=== PATIENT | female | born 1975 | race Caucasian/White ===

== ENCOUNTER 2017-03-13 12:25 | Observation (INO) | payer BC ==
[~2017-03-13] VITALS: Ht 172.7 cm; Wt 79.4 kg
[~2017-03-13 12:25] MED LIST: BENZONATATE200 MG PO; ULTRAM50 M1 PO
[2017-03-13 12:57] LABS: HEMATOCRIT 40.1 % (37.0-47.0); HEMOGLOBIN 13.9 g/dl (12.0-16.0); IMMATURE GRANULOCYTES 0.2 % (0.0-1.0); MEAN CORPUSCULAR HGB 32.3 pG CALC (26.0-32.0); MEAN CORPUSCULAR HGB CONC 34.7 g/L CALC (32.0-36.0); NEUT# 3.35 thou/uL (2.00-7.15); RED BLOOD COUNT 4.31 mill/uL (4.20-5.60); RED CELL DISTRI WIDTH 11.5 % (11.5-15.5)
[2017-03-13 13:07] LABS: ALBUMIN 4.2 g/dL (3.2-5.0); ALKALINE PHOSPHATASE 68 u/l (38-126); ANION GAP 14 (6-22 (CALC)); BILIRUBIN, TOTAL 0.7 mg/dL (0.0-1.4); BUN 17 mg/dL (7-17); BUN/CREATININE RATIO 17 (12-20 (CALC)); CALCIUM 9.2 mg/dL (8.4-10.2); CARBON DIOXIDE 25 mmol/l (22-30); CHLORIDE 106 mmol/l (95-108); GFR > 60 ML/MIN (>=60 (CALC)); GFR FOR AFR.AMER. > 60 ML/MIN (>=60 (CALC)); GLUCOSE 94 mg/dL (65-105); SGOT/AST 26 u/l (14-36); SGPT/ALT 39 u/l (9-52); SODIUM 141 mmol/l (137-146); TOTAL PROTEIN 7.1 g/dL (6.3-8.2)
[2017-03-13 13:19] LABS: MYOGLOBIN 17 ng/mL (0 - 62)
[2017-03-13 15:03] VITALS: BP 130/76
[2017-03-13 17:10] VITALS: BP 111/75
[2017-03-13 17:11] VITALS: BP 110/70
[2017-03-13 19:24] LABS: URINE BILIRUBIN - DIPSTICK NEGATIVE (NEGATIVE); URINE BLOOD DIPSTICK NEGATIVE (NEGATIVE); URINE CLARITY CLEAR; URINE COLOR YELLOW; URINE GLUCOSE - DIPSTICK NEGATIVE (NEGATIVE); URINE KETONE NEGATIVE (NEGATIVE); URINE LEUK ESTERASE NEGATIVE (NEGATIVE); URINE NITRITE - DIPSTICK NEGATIVE (Negative); URINE PROTEIN - DIPSTICK NEGATIVE (NEG-TRACE); URINE SPECIFIC GRAVITY 1.015; URINE UROBILINOGEN - DIPSTICK 0.2 E.U./dL (0.2)
[2017-03-13 19:26] LABS: BARBITURATES NEGATIVE (NEGATIVE); COCAINE NEGATIVE (NEGATIVE); METHADONE NEGATIVE (NEGATIVE); OXCYCODONE NEGATIVE (NEGATIVE); TETRAHYDROCANNABIONOL NEGATIVE (NEGATIVE); TRICYLIC ANTIDEPRESSANTS NEGATIVE (NEGATIVE)
[2017-03-13 20:00] VITALS: BP 118/86
[2017-03-14 01:23] LABS: CHOLESTEROL HDL RATIO 2.5 (<4.4 (CALC))
[2017-03-14 04:00] VITALS: BP 108/69
[2017-03-14 08:04] VITALS: BP 124/75
[2017-03-14] MEDS ORDERED: ASPIRIN ADULT L81 M2 PO (10:10)
== END 2017-03-14 10:40 | disposition home or self-care (01) | DRG 313 ==
LOC: ED 12:25 → ED-I 14:05 → ED 14:07 → MS2 14:08
PROVIDERS: Family Medicine; ADMIT Internal Medicine; ATTEND Internal Medicine
DX: R07.9 Chest pain, unspecified (principal); Z82.49 Family history of ischemic heart disease and other diseases of the circulatory system
CPT/HCPCS: G0378; J1650

== ENCOUNTER 2017-09-13 15:55 | Emergency (ER) | payer BC ==
[~2017-09-13] VITALS: Ht 172.7 cm; Wt 82.0 kg
[~2017-09-13 15:55] MED LIST changes: +ASPIRIN ADULT L81 M2 PO
[2017-09-13 15:58] VITALS: BP 131/86
== END 2017-09-13 16:22 | disposition left against medical advice (07) | DRG 951 ==
LOC: ED 15:55 → LWOBS 16:22
DX: Z91.19 Patient's noncompliance with other medical treatment and regimen (principal)

== ENCOUNTER 2018-06-20 21:33 | Emergency (ER) | payer BC ==
[~2018-06-20] VITALS: Ht 170.2 cm; Wt 77.2 kg
[2018-06-20 22:08] LABS: HEMATOCRIT 38.7 % (37.0-47.0); HEMOGLOBIN 13.2 g/dl (12.0-16.0); IMMATURE GRANULOCYTES 0.2 % (0.0-5.0); MEAN CELL VOLUME 95.1 fL CALC (80.0-100.0); MEAN CORPUSCULAR HGB 32.4 pG CALC (26.0-32.0); MEAN CORPUSCULAR HGB CONC 34.1 g/L CALC (32.0-36.0); NEUT# 3.69 thou/uL (2.00-7.15); RED BLOOD COUNT 4.07 mill/uL (4.20-5.60); RED CELL DISTRI WIDTH 11.7 % (11.5-15.5)
[2018-06-20 22:20] LABS: ALKALINE PHOSPHATASE 71 u/l (38-126); ANION GAP 11 (6-22 (CALC)); BILIRUBIN, TOTAL 0.4 mg/dL (0.0-1.4); BUN 17 mg/dL (7-17); BUN/CREATININE RATIO 17 (12-20 (CALC)); CARBON DIOXIDE 27 mmol/l (22-30); CHLORIDE 105 mmol/l (95-108); GFR 60 ML/MIN (>=60 (CALC)); GFR FOR AFR.AMER. > 60 ML/MIN (>=60 (CALC)); POTASSIUM 4.2 mmol/l (3.5-5.1); SGOT/AST 25 u/l (14-36); SODIUM 139 mmol/l (137-146); TOTAL PROTEIN 6.7 g/dL (6.3-8.2)
[2018-06-20] MEDS ORDERED: FIORICET PO (23:18)
[2018-06-20 23:25] VITALS: BP 103/56
== END 2018-06-20 23:25 | disposition home or self-care (01) | DRG 305 ==
LOC: ED 21:33
PROVIDERS: Emergency Medicine
DX: I10 Essential (primary) hypertension (principal)